=== PATIENT | male | born 1980 | race Caucasian/White ===

== ENCOUNTER 2023-06-01 08:54 | Emergency (ER) | payer OTHER ==
[2023-06-01] MEDS ORDERED: Ketorolac 60 MG/2 ML SDV IM ONE (09:58)
[2023-06-01] MEDS ORDERED: methylPREDNISolone Sodium Succinate 125 MG/2 ML SDV IM ONE (09:58)
== END 2023-06-01 10:44 | disposition home or self-care (01) ==
LOC: MW.ED 08:54
DX: M54.6 Pain in thoracic spine (principal); X50.0XXA Overexertion from strenuous movement or load, initial encounter; Y92.89 Other specified places as the place of occurrence of the external cause; Y99.0 Civilian activity done for income or pay
CPT/HCPCS: 96372; 99283; J1885; J2930